=== PATIENT | male | born 1980 | race Two or more races ===

== ENCOUNTER → 2020-07-10 | Outpatient (CLI) | payer OTHER ==
--- NOTE | 2020-07-10 08:33 | RAD ---
US ABDOMEN COMPLETE: 07/10/2020 7:47 AM Indication: 40 years old Male. Elevated alkaline phosphatase, thrombocytopenia and hyperbilirubinemia Comparison: None. TECHNIQUE: Sonographic evaluation of the abdomen is performed utilizing grayscale and color Doppler. FINDINGS: Liver: There is coarsened echotexture as may be seen with micronodular morphology associated with cir rhosis. There is hepatopedal flow within the portal venous system. Right hepatic lobe measures 18.9 c m. Biliary system: CBD measures 2.7 mm. There is no intrahepatic or extrahepatic biliary dilatation. Gallbladder: No stones, wall thickening or pericholecystic fluid. . Sonographic Bailon sign: Negative Pancreas: Poorly visualized. Spleen: 16.3 cm. Right kidney: 11.5 x 6.2 x 6.1 cm. No hydronephrosis. Normal echotexture without focal mass or renal calculus. Left kidney: 12.5 x 6.5 x 6.2 cm. No hydronephrosis. Normal echotexture without focal mass or renal c alculus. Abdominal aorta and IVC: Visualized portions unremarkable. Free fluid:None. IMPRESSION: Coarsened echotexture of the hepatic parenchyma may be associated with underlying cirrhosis. Further evaluation with MRI abdomen with and without contrast could be of benefit as findings may limit evalu ation for underlying hepatic masses. Hepatosplenomegaly. Findings are nonspecific although may be associated with portal hypertension. Und erlying myeloproliferative disorder or postinfectious changes could have similar appearance. Electronically signed by: Gisselle Grant MD (07/10/2020 8:31 AM) [facility]
== END ==
LOC: US 08:47
PROVIDERS: ATTEND Physician Assistant Medical
DX: R16.2 Hepatomegaly with splenomegaly, not elsewhere classified (principal); R74.8 Abnormal levels of other serum enzymes
CPT/HCPCS: 76700

== ENCOUNTER → 2020-08-18 | Outpatient (CLI) | payer OTHER ==
[2019-12-30 14:39] VITALS: BP 130/69
[~2020-08-18] MED LIST: ASPI-630 PO; CHLO25CA9 PO; FOLI1TAB16 PO; GADOTERATE 5 MMOL/10ML VIAL. IVP ONE; LISI10TA2 PO; MULT1TAB90 PO; NPH,100V5 SQ; THIA100T22 PO
--- NOTE | 2020-08-27 11:21 | RAD ---
EXAM: MRI ABDOMEN WITH AND WITHOUT CONTRAST. HISTORY: Elevated liver enzymes. Splenomegaly. TECHNIQUE: MRI of the abdomen was performed before and after the intravenous administration of 20 mL Clariscan. COMPARISON: 07/10/2020. FINDINGS: Liver: Hepatic parenchymal signal loss on opposed phase images indicates mild diffuse hepatic steatos is. There is mild hepatic surface nodularity. T1 precontrast hyperintense nodules measure 7 mm in hepatic segment 8 on series 12 image 23, 5 mm in segment 6 on image 51, and 5 mm in segment 3 on image 29. A few additional tiny T1 hyperintense foci are seen elsewhere. These demonstrate enhancement similar to background parenchyma without clear wash out. Another small arterially enhancing focus in segment 5 on image 113, just lateral to the inferior segment of the right portal vein measures 9 mm and becomes isointense on later series. No lesions de monstrate washout are identified. Biliary tree: The gallbladder is distended but otherwise unremarkable. The common duct is not dilated . There are no suspicious pancreatic parenchymal lesions. T1 precontrast signal loss within the pancr eatic head and body suggests chronic pancreatitis. The pancreatic duct is not dilated. Other findings: The spleen is mildly to moderately enlarged at 15.3 cm. The kidneys and adrenal gland s are unremarkable. IMPRESSION: 1. Subcentimeter dysplastic nodules and foci of arterial enhancement demonstrate no clear washout. No definitively suspicious hepatic lesions are seen. MRI follow-up is recommended in 3-6 months. 2. Morphologic changes of cirrhosis and portal hypertension. 2. Findings suggesting chronic pancreatitis. Electronically signed by: Go Emerson MD (08/27/2020 11:19 AM) [id number]
== END ==
LOC: MERGE 08:15 → MRI 09:31
PROVIDERS: ATTEND Family Medicine
DX: R16.2 Hepatomegaly with splenomegaly, not elsewhere classified (principal); E80.6 Other disorders of bilirubin metabolism; D69.6 Thrombocytopenia, unspecified; K74.69 Other cirrhosis of liver; K76.6 Portal hypertension
CPT/HCPCS: 74183; A9575

== ENCOUNTER 2021-01-03 11:43 | Emergency (ER) | payer SELFPAY ==
[~2021-01-03] VITALS: Ht 165.1 cm; Wt 100.0 kg
[~2021-01-03 11:43] MED LIST changes: -GADOTERATE 5 MMOL/10ML VIAL. IVP ONE; +LISI10TA16 PO; -LISI10TA2 PO; -MULT1TAB90 PO; +MULT1TAB92 PO
[2021-01-03] MEDS ORDERED: CONTRAST GIVEN. MC PRN (12:15)
--- NOTE | 2021-01-03 12:22 | PHYS DOC ---
Past Medical History Past Medical History: Alcoholism, Diabetes-Type II, Hypertension Past Surgical History: No Surgical History Smoking Status: Never Smoker Alcohol Use: Heavy Drug Use: None General Adult EDM: Chief Complaint: ABDOMINAL PAIN HPI: HPI: Patient is a 40 year old male patient who presents to the ED today complaining of 10 out of 10 right upper and mid abdominal pain with nausea and vomiting, symptoms of been going on for 1 week. Patient is also complaining of diarrhea. Denies any hematemesis or melena. He states he is alcoholic and the last time he had alcohol was a week ago. Patient also reports he has had a 20 pound weight loss in the last 1 week without trying. Patient is also complaining of multiple bruises on his abdomen and upper back that he noted a week ago, patient denies any trauma or being on any anticoagulants. Review of Systems: Review of Systems: Constitutional: Denies fever or chills. [] Eyes: Denies change in visual acuity. [] HENT: Denies nasal congestion or sore throat. [] Respiratory: Denies cough or shortness of breath. [] Cardiovascular: Denies chest pain or edema. [] GI: Reports abdominal pain with nausea and vomiting as well as diarrhea, denies any hematemesis or melena. : Denies dysuria. [] Musculoskeletal: Denies back pain or joint pain. [] Integument: Reports abdominal bruising and upper back abrasion Neurologic: Denies headache, focal weakness or sensory changes. [] [] Psychiatric: Denies depression or anxiety. [] Heart Score: C/O Chest Pain: N/A Risk Factors: Risk Factors: DM, Current or recent (<one month) smoker, HTN, HLP, family history of CAD, obesity. Risk Scores: Score 0 - 3: 2.5% MACE over next 6 weeks - Discharge Home Score 4 - 6: 20.3% MACE over next 6 weeks - Admit for Clinical Observation Score 7 - 10: 72.7% MACE over next 6 weeks - Early Invasive Strategies Current Medications: Current Medications Medications (Trade) Dose Ordered Sig/Yolande Start Time Stop Time Status Last Admin Dose Admin Info (CONTRAST GIVEN -- Rx MONITORING) 1 each PRN DAILY PRN 01/03/21 12:15 01/05/21 12:14 Iohexol (Omnipaque 300 Mg/ml) 75 ml 1X ONCE 01/03/21 12:30 01/03/21 12:31 Morphine Sulfate (Morphine Sulfate) 4 mg 1X ONCE 01/03/21 12:30 01/03/21 12:31 Multivitamins 10 ml/Thiamine HCl 100 mg/Folic Acid 1 mg/Sodium Chloride 1,011.2 ml @ 1,000.088 mls/hr 1X ONCE 01/03/21 13:00 01/03/21 14:00 Ondansetron HCl (Zofran) 4 mg 1X ONCE 01/03/21 12:30 01/03/21 12:31 Allergies: Allergies: Allergies Coded Allergies Type Severity Reaction Last Updated Verified No Known Drug Allergies 08/18/20 No Physical Exam: PE: Constitutional: Well developed, well nourished, no acute distress, non-toxic appearance. [] HENT: Normocephalic, atraumatic, bilateral external ears normal, oropharynx moist, no oral exudates, nose normal. [] Eyes: PERRLA, EOMI, sclera icteria bilaterally, no discharge. [] Neck: Normal range of motion, no tenderness, supple, no stridor. [] Cardiovascular:Heart rate regular rhythm, no murmur [] Lungs & Thorax: Bilateral breath sounds clear to auscultation [] Abdomen: Bowel sounds normal, soft, mild tenderness to the right mid and slight upper abdomen with negative Bailon sign, no right lower quadrant tenderness, negative psoas sign, no masses, no pulsatile masses. [] Skin: Bruises noted on the right abdomen next to the umbilicus, left lower quadrant, right mid abdomen, and bilateral scapula. Back: No tenderness, no CVA tenderness. [] Extremities: No tenderness, no cyanosis, no clubbing, ROM intact, no edema. [] Neurologic: Alert and oriented X 3, normal motor function, normal sensory function, no focal deficits noted. [] Psychologic: Affect normal, judgement normal, mood normal. [] Current Patient Data: Vital Signs: Vital Signs Date Time Temp Pulse Resp B/P (MAP) Pulse Ox O2 Delivery O2 Flow Rate FiO2 01/03/21 11:57 97.8 103 20 161/85 (110) 97 Room Air 97.8 EKG: EKG: [] Radiology/Procedures: Radiology/Procedures: []PROCEDURE: ABDOMEN LTD Right upper quadrant ultrasound dated 01/03/2021. Comparison made to CT dated same day. CLINICAL INDICATION: Pain. FINDINGS: Liver is of diffuse heterogeneous increased echogenicity. No apparent mass. Intrahepatic and extra hepatic biliary tree are normal in caliber. The common bile duct measures 3 mm. Gallbladder normal in size and echogenicity. Gallbladder wall is upper limits of normal in thickness measuring about 2.7 mm. No pericholecystic fluid. No gallstones are seen. Right kidney measures 12.2 cm in length without hydronephrosis. Left kidney was not imaged. Limited visualized portions of pancreas aorta and IVC unremarkable. No significant ascites. IMPRESSION: 1. Heterogeneous liver consistent with hepatocellular disease and/or fatty infiltration. 2. Borderline gallbladder wall thickening, nonspecific. No gallstones are seen. Electronically signed by: Dylan Monet MD (01/03/2021 5:05 PM) [id number] DICTATED and SIGNED BY: DYLAN MONET MD DATE: 01/03/21 [id number] PROCEDURE: CT ABD PELV W/ IV CONTRST ONLY CT abdomen pelvis with contrast dated 01/03/2021. Comparison made to MRI dated 08/18/2020. Clinical data indication: Abdominal pain. TECHNIQUE: Contiguous axial imaging the M pelvis performed after the intravenous administration of 75 cc Omnipaque 300. One or more of the following individualized dose reduction techniques were utilized for this examination: 1. Automated exposure control 2. Adjustment of the mA and/or kV according to patient size 3. Use of iterative reconstruction technique. FINDINGS: Limited images of lung bases are clear. Heart size within normal limits. No pleural or pericardial effusion. There are multiple low-density foci scattered throughout the hepatic parenchyma that are indeterminate. The liver is nodular in contour. Comparison to prior MRI is difficult due to differences in technique. The number of nodular foci are probably unchanged. The liver is heterogeneous and of low density. The portal vein is patent. Mild gallbladder wall thickening without calcific stone. Spleen is upper limits of normal in size, stable. Pancreas, adrenal glands and kidneys are unremarkable. No hydronephrosis. Unopacified GI tract normal in caliber and contour. No focal bowel wall thickening. The appendix is normal in caliber. No ascites or lymphadenopathy. Abdominal aorta normal in caliber. No significant ascites. Images of pelvis show nondistended urinary bladder. There is mild bladder wall thickening. Prostate gland normal in size. No free fluid or lymphadenopathy. Bone windows show no acute finding. Mild lower lumbar spondylosis. IMPRESSION: 1. Heterogeneous nodular liver consistent with cirrhosis, similar to prior MRI. There are multiple tiny hypodense nodules throughout the liver that are indeterminate and comparison to the prior MRI is difficult, however these are probably not significant changed. Suggest a follow-up MRI for better evaluation. 2. Mild wall thickening of the gallbladder, nonspecific but likely related to underlying hepatocellular disease. 3. Normal appendix. 4. Mild wall thickening of the urinary bladder, acute versus chronic cystitis. Electronically signed by: Dylan Monet MD (01/03/2021 1:34 PM) [id number] DICTATED and SIGNED BY: DYLAN MONET MD DATE: 01/03/21 [id number] Course & Med Decision Making: Course & Med Decision Making Pertinent Labs and Imaging studies reviewed. (See chart for details) This is a 40-year-old male patient presented to the ED today complaining of abdominal pain, nausea vomiting and diarrhea for 1 week. Patient is alcoholic and reports last alcohol intake was a week ago. Also complaining of multiple bruises on the abdomen and upper back for 1 week with no injury or no use of anticoagulants. CBC with a WBC of 3.8, CMP with glucose of 248, anion gap is 5, bilirubin 5.5, AST 134, ALT 142, ALK 252. CT of the abdomen and pelvic was noted for liver cirrhosis which patient is aware of, nonspecific gallbladder wall thickening, possible cystitis, UA is negative for infection Gallbladder ultrasound was noted for nonspecific gallbladder thickening again. Patient at this point would like to go home. Informed patient she will have to follow-up with a GI doctor as well as a general surgeon as an outpatient. Encourage him to get help for alcohol use but he seems hesitant Stew Disclaimer: Stew Disclaimer: This electronic medical record was generated, in whole or in part, using a voice recognition dictation system. Departure Departure Impression: Primary Impression: Alcohol abuse Additional Impressions: Transaminitis Liver cirrhosis Qualified Codes: K70.30 - Alcoholic cirrhosis of liver without ascites Bruising Elevated bilirubin Disposition: HOME / SELF CARE / HOMELESS Condition: STABLE Referrals: NOLBERTO CAMPUZANO MD (PCP) Follow-up next week PAULINO BARRETT MD Follow-up next week for gallbladder disease MERVAT MENDOZA MD Follow-up next week for liver cirrhosis Patient Instructions: Alcohol Problems, Cholelithiasis, Liver Disease Diet Additional Instructions: You were evaluated in the emergency room and noted to have liver cirrhosis and nonspecific gallbladder thickening. We highly recommend he consider getting help for alcohol use. We provided you several specialists including a GI doctor and general surgeon. Please follow-up with them as soon as possible Scripts Ondansetron (ONDANSETRON ODT) 4 Mg Tab.rapdis 1 TAB PO PRN Q6-8HRS, #16 TAB Prov: MARIA A AVILA APRN 01/03/21 Tramadol Hcl (TRAMADOL HCL) 50 Mg Tablet 50 MG PO Q6HRS PRN for PAIN, #20 TAB Prov: MARIA A AVILA APRN 01/03/21 MARIA A AVILA APRN Jan 03, 2021 12:22
[2021-01-03 12:30] LABS: BASO % 1 % (0-3); EOS % 1 % (0-3); HEMATOCRIT 42.4 % (39.0-53.0); HEMOGLOBIN 14.9 g/dL (13.0-17.5); LYMPH # 0.6 x10^3/uL (1.0-4.8); LYMPH % 16 % (24-48); MEAN CORPUSCULAR HEMOGLOBIN 34 pg (25-35); MEAN CORPUSCULAR HGB CONC 35 g/dL (31-37); MEAN CORPUSCULAR VOLUME 95 fL (79-100); MONO # 0.3 x10^3/uL (0.0-1.1); MONO % 9 % (0-9); NEUT # 2.8 x10^3/uL (1.8-7.7); NEUT % 75 % (31-73); PLATELET COUNT 26 x10^3/uL (140-400); RED BLOOD COUNT 4.45 x10^6/uL (4.30-5.70); WHITE BLOOD COUNT 3.8 x10^3/uL (4.0-11.0)
[2021-01-03] MEDS ORDERED: ONDANSETRON PF 4 MG/2 ML VIAL. IVP ONE (12:30)
[2021-01-03] MEDS ORDERED: IOHEXOL 300 MG/ML 100ML VIAL. IV ONE (12:30)
[2021-01-03] MEDS ORDERED: MORPHINE SULFATE 4 MG/ML VIAL. IV ONE (12:30)
[2021-01-03 12:33] LABS: PROTHROMBIN TIME PATIENT 20.2 SEC (11.7-14.0)
[2021-01-03 12:45] LABS: ACETAMIN < 2 mcg/ml (10-30); ETHANOL < 10 mg/dL (0-10); SALIC < 2.8 mg/dL (2.8-20.0)
[2021-01-03 12:49] LABS: BILIRUBIN,URINE MODERATE (NEG); CLARITY,URINE CLEAR; COLOR,URINE AMBER; NITRITE,URINE NEGATIVE (NEG); PROTEIN,URINE NEGATIVE (NEG-TRACE)
[2021-01-03 12:54] LABS: CALCIUM 8.1 mg/dL (8.5-10.1); CREATININE 0.7 mg/dL (0.7-1.3); GFR 124.3; POTASSIUM 4.5 mmol/L (3.5-5.1)
[2021-01-03 12:55] LABS: BACTERIA,URINE 0 /HPF (0-FEW); WBC,URINE 0 /HPF (0-4)
[2021-01-03 12:58] LABS: ALBUMIN 2.9 g/dL (3.4-5.0); ALBUMIN/GLOBULIN RATIO 0.6 (1.0-1.7); TOTAL BILIRUBIN 5.5 mg/dL (0.2-1.0); TOTAL PROTEIN 7.9 g/dL (6.4-8.2)
[2021-01-03] MEDS ORDERED: MULTIVIT INFUSN,ADULT 4,VIT K 10 ML, THIAMINE INJ 100 MG, FOLIC ACID INJ 1 MG in IV NOR... IV ONE (13:00)
--- NOTE | 2021-01-03 13:37 | RAD ---
CT abdomen pelvis with contrast dated 01/03/2021. Comparison made to MRI dated 08/18/2020. Clinical data indication: Abdominal pain. TECHNIQUE: Contiguous axial imaging the M pelvis performed after the intravenous administration of 75 cc Omnipaq ue 300. One or more of the following individualized dose reduction techniques were utilized for this examinat ion: 1. Automated exposure control 2. Adjustment of the mA and/or kV according to patient size 3. Use of iterative reconstruction technique. FINDINGS: Limited images of lung bases are clear. Heart size within normal limits. No pleural or pericardial ef fusion. There are multiple low-density foci scattered throughout the hepatic parenchyma that are indeterminat e. The liver is nodular in contour. Comparison to prior MRI is difficult due to differences in techni que. The number of nodular foci are probably unchanged. The liver is heterogeneous and of low density . The portal vein is patent. Mild gallbladder wall thickening without calcific stone. Spleen is upper limits of normal in size, stable. Pancreas, adrenal glands and kidneys are unremarkab le. No hydronephrosis. Unopacified GI tract normal in caliber and contour. No focal bowel wall thickening. The appendix is n ormal in caliber. No ascites or lymphadenopathy. Abdominal aorta normal in caliber. No significant as cites. Images of pelvis show nondistended urinary bladder. There is mild bladder wall thickening. Prostate g land normal in size. No free fluid or lymphadenopathy. Bone windows show no acute finding. Mild lower lumbar spondylosis. IMPRESSION: 1. Heterogeneous nodular liver consistent with cirrhosis, similar to prior MRI. There are multiple ti ny hypodense nodules throughout the liver that are indeterminate and comparison to the prior MRI is d ifficult, however these are probably not significant changed. Suggest a follow-up MRI for better eval uation. 2. Mild wall thickening of the gallbladder, nonspecific but likely related to underlying hepatocellul ar disease. 3. Normal appendix. 4. Mild wall thickening of the urinary bladder, acute versus chronic cystitis. Electronically signed by: yDlan Monet MD (01/03/2021 1:34 PM) [id number]
[2021-01-03 13:47] LABS: BARBITURATES NEG (NEG); BENZODIAZEPINES NEG (NEG); CANNABINOIDS NEG (NEG); COCAINE NEG (NEG); METHADONE NEG (NEG); OPIATES NEG (NEG); PHENCYCLIDINE NEG (NEG)
[2021-01-03 13:50] LABS: AMPHETAMINE/METHAMPHETAMINE NEG (NEG)
[2021-01-03] MEDS ORDERED: MORPHINE SULFATE 10 MG/ML VIAL. IV ONE (16:00)
[2021-01-03 16:22] VITALS: BP 148/73
--- NOTE | 2021-01-03 17:07 | RAD ---
Right upper quadrant ultrasound dated 01/03/2021. Comparison made to CT dated same day. CLINICAL INDICATION: Pain. FINDINGS: Liver is of diffuse heterogeneous increased echogenicity. No apparent mass. Intrahepatic and extra he patic biliary tree are normal in caliber. The common bile duct measures 3 mm. Gallbladder normal in size and echogenicity. Gallbladder wall is upper limits of normal in thickness measuring about 2.7 mm. No pericholecystic fluid. No gallstones are seen. Right kidney measures 12.2 cm in length without hydronephrosis. Left kidney was not imaged. Limited visualized portions of pancreas aorta and IVC unremarkable. No significant ascites. IMPRESSION: 1. Heterogeneous liver consistent with hepatocellular disease and/or fatty infiltration. 2. Borderline gallbladder wall thickening, nonspecific. No gallstones are seen. Electronically signed by: Dylan Monet MD (01/03/2021 5:05 PM) [id number]
[2021-01-03] MEDS ORDERED: ONDA4TAB12 PO (17:27)
[2021-01-03] MEDS ORDERED: TRAM50TA PO (17:27)
== END 2021-01-03 17:37 | disposition home or self-care (01) ==
LOC: ER 11:43
DX: S30.1XXA Contusion of abdominal wall, initial encounter (principal); S20.419A Abrasion of unspecified back wall of thorax, initial encounter; K70.30 Alcoholic cirrhosis of liver without ascites; F10.20 Alcohol dependence, uncomplicated; Y90.0 Blood alcohol level of less than 20 mg/100 ml; R74.01 Elevation of levels of liver transaminase levels; E80.7 Disorder of bilirubin metabolism, unspecified; S40.012A Contusion of left shoulder, initial encounter; S40.011A Contusion of right shoulder, initial encounter; E11.9 Type 2 diabetes mellitus without complications; I10 Essential (primary) hypertension; X58.XXXA Exposure to other specified factors, initial encounter; Y93.89 Activity, other specified; Y92.89 Other specified places as the place of occurrence of the external cause; Y99.8 Other external cause status
CPT/HCPCS: 36415; 74177; 76705; 80053; 80307; 80329; 81001; 83690; 83735; 85025; 85610; 85730; 96365; 96375; 96376; 99285; G0480; J2270; J2405; J3411; J3490; J7030; Q9967